=== PATIENT | female | born 1945 | race Caucasian/White ===

== ENCOUNTER 2023-01-27 23:01 | Emergency (ER) | payer BC, MEDICARE ==
[~2023-01-27 23:01] MED LIST: Iopamidol 300 61% 100 ML VIAL FS ONE
[2023-01-28 00:08] LABS: ALT (SGPT) 22 U/L (8-55); AST (SGOT) 24 U/L (5-34); Albumin 4.3 g/dL (3.4-4.8); Alkaline Phosphatase 80 U/L (40-110); Anion Gap 17 mmol/L (10-20); BUN (Urea Nitrogen) 14 mg/dL (9.8-20.1); Bilirubin, Total 0.5 mg/dL (0.2-1.2); Calc. Creatinine Clearance 0 mL/min (70-130); Carbon Dioxide 22 mmol/L (23-31); Chloride 104 mmol/L (98-107); Estimated GFR 65; Globulin 3.1 g/dL (2.4-3.5); Glucose 83 mg/dL (83-110); Lipase 22 U/L (8-78); Magnesium 2.3 mg/dL (1.6-2.6); Potassium 4.2 mmol/L (3.5-5.1); Protein, Total 7.4 g/dL (5.8-8.1); Sodium 139 mmol/L (136-145)
[2023-01-28 00:12] LABS: #Basophils 0.1 10x3/uL (0.0-0.2); #Eosinphils 0.1 10x3/uL (0.0-0.5); #Neutrophils 5.6 10x3/uL (1.5-8.4); %Eosinophils 1.1 % (0.0-6.0); %Lymphocytes 30.8 % (18.0-47.0); %Monocytes 9.7 % (0.0-10.0); %Neutrophils 57.1 % (40.0-75.0); Hemoglobin 15.9 g/dL (12.0-15.5); Mean Corpuscular Hemoglobin 29.8 pg (27.0-33.0); Mean Corpuscular Volume 90.4 fl (81.6-98.3); Platelet Count 202 10x3/uL (150-450); RBC Distribution Width 13.2 % (11.5-14.5); Red Blood Cell (RBC) Count 5.33 10x6/uL (3.90-5.03); White Blood Cell (WBC) Count 9.8 10x3/uL (3.5-10.5)
[2023-01-28 00:21] LABS: Bilirubin Neg (Negative); Blood, Urine 10 (Negative); Clarity Clear (Clear); Glucose, Urine (Dipstick) Normal (Negative); Ketone, Urine Negative (Negative); Leukocyte Negative (Negative); Nitrite Negative (Negative); Protein, Urine (Dipstick) 15 mg/dl (Neg-Trace); Urobilinogen Normal mg/dL (Less than 2); pH, Urine 6.5 (5.0-9.0)
[2023-01-28 00:30] LABS: Bacteria/HPF Rare-Few HPF (None Seen); CAUTI Indications for Culture Alt mental st,lethar; RBC/HPF 0-3 HPF (0-3); Squamous Epithelial 0-3 HPF (0-3); WBC/HPF 0-3 HPF (0-3)
[2023-01-28 00:31] LABS: Urine Culture Reflex No No
== END 2023-01-28 01:39 | disposition home or self-care (01) ==
LOC: CSHERS 23:01
DX: R19.7 Diarrhea, unspecified (principal); R42 Dizziness and giddiness; I10 Essential (primary) hypertension; I50.9 Heart failure, unspecified; E03.9 Hypothyroidism, unspecified; Z79.899 Other long term (current) drug therapy; Z79.01 Long term (current) use of anticoagulants
CPT/HCPCS: 71045; 74177; 80053; 81001; 83690; 83735; 83880; 84484; 85025; 93005; 96360; Q9967